=== PATIENT | male | born 1970 | race Caucasian/White ===

== ENCOUNTER → 2021-06-02 | Outpatient (CLI) | payer OTHER ==
[~2021-06-02] MED LIST: CYCLOBENZAPRINE10 MG PO; CYCLOBENZAPRINE5 M3 PO; PULMICORT90 MCG/ACT INH; SINGULAIR4 MG PO; ZYRTEC10 M3 PO
== END | disposition home or self-care (01) ==
LOC: COVID19 16:34
PROVIDERS: ATTEND Internal Medicine
DX: U07.1 COVID-19 (principal); J45.40 Moderate persistent asthma, uncomplicated; J30.89 Other allergic rhinitis

== ENCOUNTER → 2021-07-05 | Outpatient (CLI) | payer BC | END | disposition home or self-care (01) | LOC: CARD 12:44 | PROVIDERS: ATTEND Internal Medicine | DX: I07.1 Rheumatic tricuspid insufficiency (principal) ==

== ENCOUNTER → 2021-07-13 | Outpatient (CLI) | payer BC | END | disposition home or self-care (01) | LOC: MRI 12:42 | PROVIDERS: ATTEND Internal Medicine | DX: J34.9 Unspecified disorder of nose and nasal sinuses (principal); R41.3 Other amnesia ==